=== PATIENT | female | born 1955 | race Caucasian/White ===

== ENCOUNTER → 2023-05-04 11:04 | Outpatient (REF) | payer MEDICARE, OTHER, SELFPAY | LOC: RAD 11:04 | PROVIDERS: ATTENDING PHYSICIAN Physician Assistant; FAMILY PHYSICIAN Family Medicine | DX: M79.641 Pain in right hand (principal) | CPT/HCPCS: 73130 ==

== ENCOUNTER → 2023-05-10 14:34 | Outpatient (REF) | payer MEDICARE, OTHER, SELFPAY | LOC: HWRAD 14:34 | PROVIDERS: ATTENDING PHYSICIAN Physician Assistant; FAMILY PHYSICIAN Family Medicine | DX: M81.0 Age-related osteoporosis without current pathological fracture (principal); Z13.820 Encounter for screening for osteoporosis | CPT/HCPCS: 77080 ==

== ENCOUNTER → 2023-09-05 11:36 | Outpatient (REF) | payer MEDICARE, OTHER, SELFPAY | LOC: PAVMRI 11:36 | PROVIDERS: ATTENDING PHYSICIAN Nurse Practitioner; FAMILY PHYSICIAN Family Medicine | DX: R51.9 Headache, unspecified (principal) | CPT/HCPCS: 70551 ==

== ENCOUNTER → 2023-10-10 13:48 | Outpatient (REF) | payer MEDICARE, OTHER, SELFPAY | LOC: HWRAD 13:48 | PROVIDERS: ATTENDING PHYSICIAN Otolaryngology; FAMILY PHYSICIAN Family Medicine | DX: J32.9 Chronic sinusitis, unspecified (principal) | CPT/HCPCS: 70486 ==

== ENCOUNTER → 2023-10-27 14:34 | Outpatient (REF) | payer MEDICARE, OTHER, SELFPAY | LOC: WDC 14:34 | PROVIDERS: ATTENDING PHYSICIAN Family Medicine | DX: Z12.31 Encounter for screening mammogram for malignant neoplasm of breast (principal) | CPT/HCPCS: 77063; 77067 ==

== ENCOUNTER → 2023-11-08 10:02 | Outpatient (REF) | payer MEDICARE, OTHER, SELFPAY | LOC: WDC 10:02 | PROVIDERS: ATTENDING PHYSICIAN Family Medicine | DX: R92.8 Other abnormal and inconclusive findings on diagnostic imaging of breast (principal) | CPT/HCPCS: 77066 ==

== ENCOUNTER → 2023-11-15 07:24 | Outpatient (REF) | payer MEDICARE, OTHER, SELFPAY ==
--- NOTE | 2023-11-15 12:43 | OID.BR.INTR ---
[facility] Breast Navigator - Initial
- -
Date of Contact: 11/15/23
Met with patient. Patient given written information on navigator services available at [facility]. Will follow up as needed per protocol.
== END ==
LOC: WDC 07:24
PROVIDERS: ATTENDING PHYSICIAN Family Medicine
DX: R92.1 Mammographic calcification found on diagnostic imaging of breast (principal)
CPT/HCPCS: 88305; 19081; 76098; A4648

== ENCOUNTER → 2023-12-06 09:35 | Outpatient (REF) | payer MEDICARE, OTHER, SELFPAY | LOC: WDC 09:35 | PROVIDERS: ATTENDING PHYSICIAN Specialist | DX: L76.32 Postprocedural hematoma of skin and subcutaneous tissue following other procedure (principal); N63.22 Unspecified lump in the left breast, upper inner quadrant | CPT/HCPCS: 19000; 76642; 76942 ==

== ENCOUNTER 2024-07-22 09:36 | Emergency (ER) | payer MEDICARE, OTHER, SELFPAY ==
[2024-07-22 09:38] VITALS: BP 138/83
--- NOTE | 2024-07-22 09:50 | ED.GENMED ---
History of Present Illness
General
Chief Complaint: Breathing Problem
Source: patient
Exam Limitations: none
Time Seen by Provider: 07/22/24 09:50
Nursing documentation reviewed up to this point in time: agreed with
History of Present Illness
History of Present Illness:
69-year-old female presents emergency department complaining of left-sided chest pain and shortness of breath for the past 5 days. 10 days ago she fell on the way to her bathroom at 3 AM in the dark. She hit her head and the left side of her chest
and abdomen. She denies loss of consciousness. She put a balm on her chest that did not help. Her dog hit her in the ribs and it made the pain worse. She does not take any blood thinners.
Past History
Past History
ED Past Medical History: Psychiatric
ED Past Surgical History: Gynecological
Social History
Tobacco: Non-smoker
Review of Systems
Review of Systems
Allergies reviewed?: Yes
All Other Systems: Not applicable
Constitutional: Reports no symptoms
EENT: Reports no symptoms
Respiratory: Reports no symptoms
Cardiac: Reports chest pain
ABD/GI: Reports abdominal pain
: Reports no symptoms
Musculoskeletal: Reports no symptoms
Skin: Reports no symptoms
Neurological: Reports no symptoms
Endocrine: Reports no symptoms
Hematologic/Lymphatic: Reports no symptoms
Psychiatric: Reports no symptoms
Phy Exam
Physical Exam
Physical Exam:
Physical Exam
General: no apparent distress, not acutely ill
Neck: supple. no meningeal signs. normal posterior pharynx
Heart: s1/s2 regular rate and rhythm, no murmur. equal radial
pulses.
HEENT: Pupils equal round reactive to light, EOMI
Lungs: no acute respiratory distress. clear bilaterally, bruising at posterior lower ribs with ecchymosis
Abdomen: normal bowel sounds. Left upper quadrant tenderness no CVAT
Neuro: alert and oriented. no focal neurological deficits cranial nerves II through XII intact
Skin: no rash
Psychiatric: well kept. interactive and cooperative
Extremities: no edema. no calf tenderness. negative homans. good distal pulses
Scores
Heart Failure Risk
Heart Failure Risk Score: Not Applicable
Course
Orders/Labs/Results
Orders:
Orders
07/22/24 09:40
ECG [Electrocardiogram (*1)] Urgent
Reason for Study: Chest Pain
EKG- Treatment ONCE
07/22/24 10:00
Type+Screen Urgent
CT Chest/abd/pel W Iv Cont Urgent
Comment:
Reason For Exam: fall 10 d ago, hit chest,abd, abd pain, short of b
CT Head W/o Iv Contrast Urgent
Comment:
Reason For Exam: fall, hit head
07/22/24 10:02
IV Insert/Care/Rem.- Treatment PRN
07/22/24 10:04
Complete Blood Count/With Diff Urgent
Comprehensive Metabolic Panel Urgent
07/22/24 11:40
Acetaminophen [Tylenol] 650 mg PO NOW STA
07/22/24 13:23
Incentive Spirometry [Rx Incentive Spirometry] [RESP] Urgent
Frequency: q1h while awake
Abnormal Lab Results
07/22/24
10:04
Hgb 11.7 L g/dL
(12.0-16.0)
Hct 36.3 L %
(37.0-47.0)
MCH 26.5 L pg
(27.0-31.0)
MCHC 32.2 L g/dL
(33.0-37.0)
RDW 15.2 H %
(11.5-14.5)
Absolute Lymphs (auto) 0.8 L 10^3/uL
(1.2-3.4)
Neutrophils % 80.4 H %
(42.2-75.2)
Lymphocytes % 11.4 L %
(20.5-51.1)
07/22/24 10:04
07/22/24 10:04
Vital Signs
Initial and Last Documented VS:
Initial Vital Signs
Temp Pulse Resp BP Pulse Ox
98.0 F 118 20 138/83 98
07/22/24 09:38 07/22/24 09:38 07/22/24 09:38 07/22/24 09:38 07/22/24 09:38
Last Documented Vital Signs
Temp Pulse Resp BP Pulse Ox
98.0 F 81 16 131/78 98
07/22/24 09:38 07/22/24 12:03 07/22/24 12:03 07/22/24 12:03 07/22/24 12:03
MDM/Problems Addressed
Differential Diagnosis Includes:
Rib fractures, pneumothorax, splenic laceration
MDM/Problems Addressed:
69-year-old female with left 6-9 rib fractures, no signs of hemothorax pneumothorax or other intra-abdominal injury. Stable for discharge.
*Radiology
Radiology exam reviewed: radiology read reviewed (ct head nad, ct chest/abdomen/pelvis: rib 6-9 fractures on left, no pneumothorax)
*Pulse Oximetry
Patient hypoxic: no
*EKG
Interpreted by ED Provider?: Yes
EKG Intrepretation Date: 07/22/24
EKG Intrepretation Time: 09:42
Interpretation: abnormal
Comparison EKG: changes noted
Heart Rate: 86
Rate: normal
Rhythm: sinus
Deshler: normal axis
Interval: normal interval
QRS Pattern: normal QRS
Ischemia: non-specific ST changes
*Senior Associate Interpretation
Rate: Senior Associate- N/A
*Critical Care Note
Total Time (30-74mins, 75-104mins- exclusive of procedures): Not Applicable
Patient Management
Social determinants of health affecting care: Living situation and Strong social support
Escalation/DeEscalation of care consider admission/obs:
admit not indicated
ED Attending Note
-
Portions of this chart may have been created with voice recognition software.� Occasional wrong word or��sound alike� substitutions may have occurred due to the inherent limitations of voice recognition software.
Discharge Plan
Departure
Patient Disposition: Home (Routine Discharge)
Date of Disposition: 07/22/24
Time of Disposition: 13:22
Patient with high blood pressure during this ER visit?: Yes
Condition: Good
Discharge Problem:
Fracture of left ninth rib, Fracture of left seventh rib, Fracture of left eighth rib, Fracture of left sixth rib
Instructions: Rib fracture or bruised rib - ED discharge instructions, BLOOD PRESSURE
Prescriptions:
No Action
alprazolam 1 MG tablet
1 mg PO HS
Patient Comments:
pt thinks may have had it last sun but she is not sure
acetaminophen 325 MG tablet
650 mg PO Q6HPRN PRN (Reason: PAIN AND/OR FEVER) Qty: 0 0RF
alprazolam 1 MG tablet
1 mg PO Q6HPRN PRN (Reason: anxiety)
prazosin 1 MG capsule
1 mg PO HS
clonazepam 1 MG tablet
1 mg PO TID
gabapentin 100 MG capsule
100 mg PO BID
risperidone 1 MG tablet
1 mg PO DAILY
lamotrigine 100 MG tablet
100 mg PO TID
metaxalone [Skelaxin] 800 MG tablet
800 mg PO HS
Referrals:
James Bender MD [Family Provider] - Call in 1-3 days for appt
Interventions
Interventions:
*Risk Screen - Suicide Last Done: 07/22/24 09:49
*General Assessment Last Done: 07/22/24 09:49
*Neglect/Abuse Screening Last Done: 07/22/24 09:49
*ED- Fall Risk Assessment Last Done: 07/22/24 09:49
*ED COVID-19 Vaccine History Last Done: 07/22/24 09:49
*Nursing Disposition Last Done: 07/22/24 13:34
ED- Cardiac Assessment Last Done: 07/22/24 09:50
ED- Pulmonary Assessment Last Done: 07/22/24 09:50
Discharge Date and Time
Discharge Date/Time: 07/22/24 13:34
Print Language: [place]
[2024-07-22 10:21] LABS: % Basophils 0.7 % (0-2); % Eosinophils 1.9 % (0-6); % Immature Granulocytes 0.4 % (0-0.5); % Lymphocytes 11.4 % (20.5-51.1); % Monocytes 5.2 % (1.7-9.3); % Neutrophils 80.4 % (42.2-75.2); Absolute Basophils 0.1 10^3/uL (0-0.2); Absolute Eosinophils 0.1 10^3/uL (0-0.7); Absolute Lymphocytes 0.8 10^3/uL (1.2-3.4); Absolute Monocytes 0.4 10^3/uL (0.1-0.6); Absolute Neutrophils 5.9 10^3/uL (1.4-6.5); Hematocrit 36.3 % (37.0-47.0); Hemoglobin 11.7 g/dL (12.0-16.0); Mean Corp Hgb Conc. 32.2 g/dL (33.0-37.0); Mean Corpuscular Hgb 26.5 pg (27.0-31.0); Mean Corpuscular Volume 82.3 fL (81.0-99.0); Mean Platelet Volume 8.1 fL (7.4-10.4); Nucleated Red Blood Cells % 0 %; Platelet Count 348 10^3/uL (130-400); Red Blood Cell Count 4.41 10^6/uL (4.20-5.40); Red Cell Dist. Width 15.2 % (11.5-14.5); White Blood Cell Count 7.4 10^3/uL (4.8-10.8)
[2024-07-22 10:37] LABS: ALT (SGPT) 18 U/L (0-35); AST (SGOT) 24 U/L (14-36); Albumin 4.2 g/dl (3.5-5.0); Alkaline Phosphatase 81 U/L (38-126); Blood Urea Nitrogen 13 mg/dl (7-17); Calcium 9.2 mg/dl (8.4-10.2); Carbon Dioxide 26 mmol/L (22-30); Chloride 106 mmol/L (98-107); Glucose 97 mg/dl (70-99); Potassium 4.1 mmol/L (3.5-5.1); Sodium 138 mmol/L (135-145); Total Bilirubin 0.5 mg/dl (0.2-1.3); Total Protein 6.6 g/dl (6.3-8.2); eGFR > 60.00
[2024-07-22] MEDS: TYLENOL 650 MG PO (11:43)
[2024-07-22 12:03] VITALS: BP 131/78
== END 2024-07-22 13:34 | disposition home or self-care (01) ==
LOC: EMR 09:36
PROVIDERS: EMERGENCY PHYSICIAN Emergency Medicine; FAMILY PHYSICIAN Family Medicine
DX: S22.42XA Multiple fractures of ribs, left side, initial encounter for closed fracture (principal); X58.XXXA Exposure to other specified factors, initial encounter
CPT/HCPCS: 99283; 70450; 71260; 74177; 80053; 85025; 93005; Q9967

== ENCOUNTER 2024-08-23 19:36 | Emergency (ER) | payer MEDICARE, OTHER, SELFPAY ==
[2024-08-23 19:39] VITALS: BP 145/79
[2024-08-23 20:27] VITALS: BP 157/91
[2024-08-23 20:28] VITALS: BMI 20.9
[2024-08-23 20:55] LABS: % Basophils 0.2 % (0-2); % Eosinophils 0.1 % (0-6); % Immature Granulocytes 0.4 % (0-0.5); % Lymphocytes 10.4 % (20.5-51.1); % Monocytes 4.8 % (1.7-9.3); % Neutrophils 84.1 % (42.2-75.2); Absolute Lymphocytes 0.9 10^3/uL (1.2-3.4); Absolute Monocytes 0.4 10^3/uL (0.1-0.6); Absolute Neutrophils 7.5 10^3/uL (1.4-6.5); Hematocrit 39.3 % (37.0-47.0); Hemoglobin 13.5 g/dL (12.0-16.0); Mean Corp Hgb Conc. 34.4 g/dL (33.0-37.0); Mean Corpuscular Hgb 27.5 pg (27.0-31.0); Mean Platelet Volume 8.1 fL (7.4-10.4); Nucleated Red Blood Cells % 0 %; Platelet Count 373 10^3/uL (130-400); Red Blood Cell Count 4.91 10^6/uL (4.20-5.40); Red Cell Dist. Width 13.9 % (11.5-14.5); White Blood Cell Count 8.9 10^3/uL (4.8-10.8)
[2024-08-23 21:07] LABS: ALT (SGPT) 20 U/L (0-35); AST (SGOT) 22 U/L (14-36); Albumin 4.9 g/dl (3.5-5.0); Alkaline Phosphatase 96 U/L (38-126); Blood Urea Nitrogen 15 mg/dl (7-17); Calcium 9.8 mg/dl (8.4-10.2); Carbon Dioxide 23 mmol/L (22-30); Chloride 108 mmol/L (98-107); Estimated Creatinine Clearance 65 ml/min; Glucose 135 mg/dl (70-99); Lipase 318 U/L (23-300); Potassium 3.7 mmol/L (3.5-5.1); Sodium 141 mmol/L (135-145); Total Bilirubin 0.7 mg/dl (0.2-1.3); Total Protein 7.6 g/dl (6.3-8.2); eGFR > 60.00
--- NOTE | 2024-08-23 21:48 | ED.GENMED ---
History of Present Illness
General
Chief Complaint: Abdominal Symptoms
Source: patient and spouse
Exam Limitations: none
Time Seen by Provider: 08/23/24 21:30
History of Present Illness
History of Present Illness:
69yoF with a history of bipolar disorder and migraines presenting with her for evaluation of vomiting and diarrhea. Symptoms began around 4 AM this morning. She reports going to the bathroom every 5 minutes throughout the day today. She
tried to take Zofran and Pepto-Bismol but was unable to keep any medications down. She was not sure what to do so decided to come to the ED. She reports intermittent stabbing pains in her abdomen which do seem improved. Her last dose of diarrhea
was about 2 hours ago and last dose of vomiting was just before she got in the car to come to the ED. She denies any hematemesis, hematochezia, fever, chest pain, shortness of breath. Patient did eat at a restaurant for lunch yesterday and had a
salad and soup. No sick contacts or recent travel.
Past History
Past History
ED Past Medical History: Psychiatric
ED Past Surgical History: Gynecological
Social History
Tobacco: Non-smoker
Phy Exam
General Physical Exam
General Presentation: well appearing and no apparent distress
General Skin: warm and dry
General Habitus: normal
General Mental: alert
ENT Exam
ENT Exam: normocephalic
Cardiovascular Exam
Cardiovascular Exam: tachycardia
Pulmonary Exam
Pulmonary Exam: lungs clear, no respiratory distress, no rales, no crackles, no rhonchi and no wheezing
Gastrointestinal Exam
Gastrointestinal Exam: soft, non distended and other (Mild generalized tenderness. Abdomen soft, non-distended. No rebound or guarding.)
Neurological Exam
Neurological Exam: alert
[place] Coma Scale
Eye Opening: Spontaneous
Verbal Response: Oriented
Motor Response: Obeys Commands
GCS Total Score: 15
Skin Exam
Skin Exam: normal color and warm/dry
Psychiatric Exam
Psychiatric Exam: normal mood/affect
Course
Orders/Labs/Results
Orders:
Orders
08/23/24 20:44
Complete Blood Count/With Diff Urgent
Comprehensive Metabolic Panel Urgent
Lipase Urgent
08/23/24 21:46
0.9% Sodium Chloride 1000 ml [Nss] 1,000 ml IV BOLUS
Ondansetron Injectable [Zofran] 4 mg IV NOW STA
08/23/24 22:[address] Non Medication Order As Directed
Physician Order: PO challenge
Above order entered?: Yes
08/23/24 22:59
Diphenhydramine [Benadryl] 25 mg IV NOW STA
Prochlorperazine [Compazine] 10 mg IV NOW STA
Abnormal Lab Results
08/23/24
20:44
MCV 80.0 L fL
(81.0-99.0)
Absolute Neuts (auto) 7.5 H 10^3/uL
(1.4-6.5)
Absolute Lymphs (auto) 0.9 L 10^3/uL
(1.2-3.4)
Neutrophils % 84.1 H %
(42.2-75.2)
Lymphocytes % 10.4 L %
(20.5-51.1)
Chloride 108 H mmol/L
(98-107)
Glucose 135 H mg/dl
(70-99)
Lipase 318 H U/L
(23-300)
08/23/24 20:44
08/23/24 20:44
Vital Signs
Initial and Last Documented VS:
Initial Vital Signs
Temp Pulse Resp BP Pulse Ox
98.4 F 131 24 145/79 93
08/23/24 19:39 08/23/24 19:39 08/23/24 19:39 08/23/24 19:39 08/23/24 19:39
Last Documented Vital Signs
Temp Pulse Resp BP Pulse Ox
98.4 F 88 15 125/87 100
08/23/24 19:39 08/24/24 00:15 08/24/24 00:15 08/24/24 00:00 08/24/24 00:15
MDM/Problems Addressed
Differential Diagnosis Includes:
69yoF here with n/v/d that began at 4am. C/o abd pain but this is improving. No fevers. Ate at a restaurant for lunch yesterday. HR 131 in triage. HR in the 110s on initial exam. Remainder of vitals stable. She is well appearing in no distress. No
signs of peritonitis on abdominal exam. Differential diagnosis includes but is not limited to: gastroenteritis, viral illness, dehydration, doubt acute surgical process
Initial ED plan: Check abdominal labs. IV Zofran and fluid bolus for symptoms. Will defer abdominal imaging at this time as pain is already improving.
*Pulse Oximetry
SaO2: 98
Patient hypoxic: no (100%)
*Critical Care Note
Total Time (30-74mins, 75-104mins- exclusive of procedures): Not Applicable
Update Note
Update Note:
Labs overall unremarkable including normal white count, electrolytes, and renal function. Patient with persistent symptoms after Zofran and was ultimately given IV Compazine and Benadryl with relief. No episodes of vomiting or diarrhea throughout
ED stay. Patient able to tolerate misti silvana and is requesting discharge. Heart rate normalized after fluids. Suspect viral gastroenteritis. Prescription given for Zofran and supportive care discussed. Advise follow-up with PCP and ED return
precautions reviewed. Patient discharged in stable condition.
ED Attending Note
-
Portions of this chart may have been created with voice recognition software.� Occasional wrong word or��sound alike� substitutions may have occurred due to the inherent limitations of voice recognition software.
Discharge Plan
Departure
Patient Disposition: Home (Routine Discharge)
Date of Disposition: 08/24/24
Time of Disposition: 00:34
Patient with high blood pressure during this ER visit?: No
Discharge Problem:
Nausea, vomiting, and diarrhea
Instructions: Viral gastroenteritis in adults
Prescriptions:
New
ondansetron 4 mg tablet,disintegrating
4 mg PO Q6H PRN (Reason: nausea and vomiting) Qty: 20 0RF
No Action
alprazolam 1 MG tablet
1 mg PO HS
Patient Comments:
pt thinks may have had it last sun but she is not sure
acetaminophen 325 MG tablet
650 mg PO Q6HPRN PRN (Reason: PAIN AND/OR FEVER) Qty: 0 0RF
alprazolam 1 MG tablet
1 mg PO Q6HPRN PRN (Reason: anxiety)
prazosin 1 MG capsule
1 mg PO HS
clonazepam 1 MG tablet
1 mg PO TID
gabapentin 100 MG capsule
100 mg PO BID
risperidone 1 MG tablet
1 mg PO DAILY
lamotrigine 100 MG tablet
100 mg PO TID
metaxalone [Skelaxin] 800 MG tablet
800 mg PO HS
Referrals:
James Bender MD [Family Provider, Family Practice]
Activity Restrictions/Additional Instructions:
Take Zofran as needed for nausea. Drink plenty of fluids and eat a bland diet (bananas, rice, applesauce, toast).
Please follow-up with your family doctor. Return to the ER with any new or worsening symptoms including severe pain, fevers, or inability to keep down fluids.
Interventions
Interventions:
*Risk Screen - Suicide Last Done: 08/23/24 19:39
*General Assessment Last Done: 08/23/24 19:39
*Neglect/Abuse Screening Last Done: 08/23/24 19:39
*ED- Fall Risk Assessment Last Done: 08/23/24 20:30
*ED COVID-19 Vaccine History Last Done: 08/23/24 20:30
*Nursing Disposition Last Done: 08/24/24 01:01
VW-Wawtkx-Fshnvgakqh Assessment Last Done: 08/23/24 20:32
Discharge Date and Time
Discharge Date/Time: 08/24/24 01:01
Print Language: TAIWANESE
[2024-08-23] MEDS: ZOFRAN 4 MG IV (21:56)
[2024-08-23] MEDS: NSS 1000 IV (21:56)
[2024-08-23 22:00] VITALS: BP 130/95
[2024-08-23 23:00] VITALS: BP 122/65
[2024-08-23] MEDS: BENADRYL 25 MG IV (23:22)
[2024-08-23] MEDS: COMPAZINE 10 MG IV (23:23)
[2024-08-24] VITALS: BP 125/87
== END 2024-08-24 01:01 | disposition home or self-care (01) ==
LOC: EMR 19:36
PROVIDERS: Emergency Medicine; EMERGENCY PHYSICIAN Student in an Organized Health Care Education/Training Program; FAMILY PHYSICIAN Family Medicine
DX: R11.2 Nausea with vomiting, unspecified (principal); R19.7 Diarrhea, unspecified; R10.9 Unspecified abdominal pain
CPT/HCPCS: 96374; 96375; 96361; 99284; 80053; 83690; 85025

== ENCOUNTER 2024-12-01 16:42 | Emergency (ER) | payer MEDICARE, OTHER, SELFPAY ==
[2024-12-01 16:44] VITALS: BP 128/82
--- NOTE | 2024-12-01 17:59 | ED.SKININJ ---
HPI-Injury
General
Chief Complaint: Skin Surface Trauma
Source: patient
Exam Limitations: none
Time Seen by Provider: 12/01/24 17:38
History of Present Illness-Injury
Initial Injury comments:
69-year-old female with laceration left index finger sustained today. She was using a utility knife and slipped and cut her left index finger. Last tetanus unknown. She denies numbness or tingling or loss of function. No other complaints
Past History
Past History
ED Past Medical History: Psychiatric
ED Past Surgical History: Gynecological
Social History
Tobacco: Non-smoker
Phy Exam
Physical Exam
Physical Exam:
General: Well-appearing female no acute distress
Skin: 1 cm laceration proximal radial aspect left index finger without neurovascular or tendon involvement
Musculoskeletal exam: Good range of motion left index finger with good sensation and brisk capillary refill
Course
Orders/Labs/Results
Orders:
Orders
12/01/24 17:58
Tetanus/Diphth/Acelpertussis [Adacel] 0.5 ml IM .ONCE ONE
Vital Signs
Initial and Last Documented VS:
Initial Vital Signs
Temp Pulse Resp BP Pulse Ox
98.2 F 99 18 128/82 95
12/01/24 16:44 12/01/24 16:44 12/01/24 16:44 12/01/24 16:44 12/01/24 16:44
Last Documented Vital Signs
Temp Pulse Resp BP Pulse Ox
98.2 F 99 18 128/82 95
12/01/24 16:44 12/01/24 16:44 12/01/24 16:44 12/01/24 16:44 12/01/24 16:44
MDM/Problems Addressed
Differential Diagnosis Includes:
Laceration left index finger without neurovascular or tendon involvement. The wound was copiously irrigated with saline anesthetized in a local fashion using 1% plain lidocaine and closed in a simple interrupted fashion using 5-0 Prolene sutures.
A total of 3 sutures were required to do so. Tetanus vaccine updated wound care instructions were given stable for discharge
*Pulse Oximetry
SaO2: 95
Oxygen Mode of Delivery: Room air
Patient hypoxic: no
*Critical Care Note
Total Time (30-74mins, 75-104mins- exclusive of procedures): Not Applicable
ED Attending Note
-
Portions of this chart may have been created with voice recognition software.� Occasional wrong word or��sound alike� substitutions may have occurred due to the inherent limitations of voice recognition software.
Discharge Plan
Departure
Patient Disposition: Home (Routine Discharge)
Date of Disposition: 12/01/24
Time of Disposition: 18:01
Patient with high blood pressure during this ER visit?: No
Discharge Problem:
Laceration
Instructions: Laceration Repair With Stitches (DC)
Prescriptions:
No Action
alprazolam 1 MG tablet
1 mg PO HS
Patient Comments:
pt thinks may have had it last sun but she is not sure
acetaminophen 325 MG tablet
650 mg PO Q6HPRN PRN (Reason: PAIN AND/OR FEVER) Qty: 0 0RF
alprazolam 1 MG tablet
1 mg PO Q6HPRN PRN (Reason: anxiety)
prazosin 1 MG capsule
1 mg PO HS
clonazepam 1 MG tablet
1 mg PO TID
gabapentin 100 MG capsule
100 mg PO BID
risperidone 1 MG tablet
1 mg PO DAILY
lamotrigine 100 MG tablet
100 mg PO TID
metaxalone [Skelaxin] 800 MG tablet
800 mg PO HS
ondansetron 4 mg tablet,disintegrating
4 mg PO Q6H PRN (Reason: nausea and vomiting) Qty: 20 0RF
Referrals:
James Bender MD [Family Provider, Family Practice]
Activity Restrictions/Additional Instructions:
Keep clean. Have sutures removed in 10 to 12 days. Return if needed otherwise follow-up with your doctor
Interventions
Interventions:
ED-Skin Assessment Last Done: 12/01/24 17:51
Discharge Date and Time
Print Language: SOMAL[place]
[2024-12-01] MEDS: ADACEL 0.5 ML IM (18:02)
== END 2024-12-01 18:11 | disposition home or self-care (01) ==
LOC: EMR 16:42
PROVIDERS: EMERGENCY PHYSICIAN Emergency Medicine; FAMILY PHYSICIAN Family Medicine
DX: S61.211A Laceration without foreign body of left index finger without damage to nail, initial encounter (principal); W26.0XXA Contact with knife, initial encounter; Z23 Encounter for immunization
CPT/HCPCS: 99282; 12001; 90471; 90715